=== PATIENT | female | born 1985 | race Caucasian/White ===

== ENCOUNTER 2018-09-11 07:55 | Inpatient (IN) | payer MEDICAID ==
[2018-09-11] MEDS ORDERED: Ondansetron 4 MG/2 ML SDV IV PRN (09:23)
[2018-09-11] MEDS ORDERED: Misoprostol 400 MCG (4 X 100 MCG TAB) RECTAL PRN (09:23)
[2018-09-11] MEDS ORDERED: Methylergonovine 0.2 MG/1 ML Amp IM PRN (09:23)
[2018-09-11] MEDS ORDERED: Sodium Chloride 0.9% 10 ML Syringe FLUSH PRN (09:23)
[2018-09-11] MEDS ORDERED: Acetaminophen 325 MG Tab PO PRN (09:23)
[2018-09-11] MEDS ORDERED: Lactated Ringers 500 ML IV ONE (09:23)
[2018-09-11] MEDS ORDERED: Lidocaine 1% 30 ML SDV INJECT PRN (09:23)
[2018-09-11] MEDS ORDERED: Carboprost Tromethamine 250 MCG/1 ML Amp IM PRN (09:23)
[2018-09-11] MEDS ORDERED: Tranexamic Acid 1,000 MG in Sodium Chloride 0.9% 100 ML IV PRN (09:23)
[2018-09-11] MEDS: Oxytocin/Normal Saline 30 UNIT/500 ML BAG IV SCH (11:25)
[2018-09-11] MEDS: Lactated Ringers 1,000 ML IV SCH ×2 (11:25→20:53)
--- NOTE | 2018-09-11 14:16 | HP ---
HISTORY OF PRESENT ILLNESS: The patient is a 32-year-old, G6, para 3-0-2-3, currently at 40 weeks and 1 day gestation based on LMP. The patient is presenting from [place] with prolonged rupture of membranes. Yesterday, she had spontaneous rupture of membranes at 4:45 a.m. She was planning a home , so top lift cutter, Adriana, was present. There was no progression with labor at 24 hours post rupture. She was having contractions 2 to 3 minutes apart and then they stopped. She went to [facility] and wanted a female physician, none were available there, so she presented to [place]. She was 2 cm and she has not changed. She has had some more leakage of clear watery fluid, but not a lot. She denies any headaches, visual changes, or vaginal bleeding. movement has remained excellent. She has no questions or concerns at this time, she just wants to have this baby as natural as possible. The patient has been seeing Adriana, her top lift cutter, for her care. No labs have been done, just CBC and urine labs. The patient does not recall any abnormalities with these. She has not had an ultrasound for this . HISTORY: 1. Delivered on 08/21/2012, 41 weeks' gestation, male infant, spontaneous, uncomplicated vaginal home , named Tata, weight 8 pounds 12 ounces. 2. Delivered on 11/02/2014, 39 weeks and 6 days' gestation, male , spontaneous, uncomplicated vaginal home , named Peg, weighed 9 pounds 5 ounces. 3. Delivered a stillborn fetus at 6 months of gestation on 11/17/2015. No autopsy was performed. Unknown as to why the baby was stillborn. 4. Miscarriage at 12 weeks. 5. Delivered on 01/15/2017, baby girl at 39 weeks and 4 days, spontaneous, uncomplicated vaginal home weighed 8 pounds 12 ounces, and her name is Latonya. LABORATORY DATA: GBS unknown; no testing for gestational DM. She was seen in clinic in [facility] in 2012 for her first labs at that time showed blood type A+ and she was rubella immune. PAST MEDICAL HISTORY: Chickenpox as a child, otherwise nothing else. PAST SURGICAL HISTORY: None. FAMILY HISTORY: The patient's dad has high blood pressure and has had skin cancer. The patient's mom is healthy. She has 3 brothers who are healthy. Maternal and paternal grandfather had heart attacks, from heart attacks. Maternal mother had lung cancer. Paternal grandmother is healthy and alive. She has a cousin with Down Syndrome. Nephew with biliary atresia. Second cousin with cleft lip. SOCIAL HISTORY: The patient lives with her and 3 kids in [place]. They travel in an for [employer] work with their 3 kids. When they are back in [place], they live at her , Daniel, mother's house. She has an apartment on her property. The 3 kids are home schooled. They travel for [employer]. [place] is [place]. No pets and no smoking. MEDICATIONS: vitamin, which she recently stopped taking. No other medications. ALLERGIES: Sulfa. REVIEW OF SYSTEMS: As listed under the HPI, otherwise unremarkable. No shortness of breath, chest pain, headaches, blurry vision, fever, chills, diarrhea, constipation, dysuria, or other reported problems. Did endorse nausea and vomiting throughout the , has not had any vomiting in the past few days. PHYSICAL EXAMINATION: Vital signs: Temp 98.3, pulse rate 80, blood pressure 133/76, respiratory rate 16. General: The patient is alert, cooperative. HEENT: Grossly normal. Neck: Supple with no adenopathy. Heart: Regular rate and rhythm without murmur. Lungs: Clear to auscultation bilaterally. Abdomen: Gravid. heart tones tracing in the 130s. Accelerations noted. [place] showing a couple of contractions over a 10-minute. Pelvic: Cervical exam per Dr. Coreas is 2 cm dilated. Cervix is posterior. Extremities: No edema, erythema, or tenderness noted. Neurologic: Appropriate. ASSESSMENT: 1. 6, para 3-0-2-3. 2. Prolonged prelabor rupture of membranes. 3. 40 and 1/7 weeks' gestation based on LMP. 4. care through top lift cutter. 5. Group B Streptococcus status unknown. 6. History of stillborn x1. 7. History of miscarriage x1. 8. Blood type A-positive, rubella immune (results are from 2012). 9. Family history of defects. PLAN: Started Pitocin at 11:30 a.m. and will run at 6 mU for 6 hours, for cervical ripening then increase as needed. Planning on a natural delivery. Planning on no medications for pain management. Anticipating vaginal delivery. We will monitor and make changes to the plans when necessary. This patient was seen by Dr. Michelle Coreas and myself. Assessment and plan are under advisement of Dr. Michelle Coreas. Francis Wilson, -III Patients seen and examined. Agree with note as scribed on my behalf by Justin Wilson, MS 3. -[facility] 09/11/18 1005. MODL /[id number] MTDD
[2018-09-11] MEDS ORDERED: Penicillin G Potassium 5 MILLUNITS in Sodium Chloride 0.9% 100 ML IV STA (19:32)
[2018-09-11] MEDS ORDERED: Penicillin G Potassium 5,000,000 Unit Vial ONE (19:35)
[2018-09-11] MEDS ORDERED: Penicillin G Potassium 5 MILLUNITS in Sodium Chloride 0.9% 100 ML IV ONE (19:45)
[2018-09-11] MEDS ORDERED: Penicillin G Potassium 3 MILLUNITS in Sodium Chloride 0.9% 100 ML IV SCH (19:45)
[2018-09-11] MEDS: Calcium Carbonate 500 MG Tab.Chew PO PRN (20:02)
[2018-09-12] MEDS: Oxytocin/Normal Saline 30 UNIT/500 ML BAG IV SCH (00:02)
[2018-09-12] MEDS: Penicillin G Potassium 3 MILLUNITS in Sodium Chloride 0.9% 100 ML IV SCH ×5 (03:39→11:54)
[2018-09-12] MEDS: Lactated Ringers 1,000 ML IV SCH (06:05)
[2018-09-12] MEDS: Calcium Carbonate 500 MG Tab.Chew PO PRN (07:59)
--- NOTE | 2018-09-12 10:45 | PN ---
DATE: 09/12/2018 SUBJECTIVE: Dannielle is a 32-year-old, G6, para 3-1-1-3, currently at 40 weeks and 2 days' gestation based on her last menstrual period. Currently, her membranes have been ruptured for 51 hours. 6 mU of Pitocin were run for 6 hours yesterday. Dose was increased after by 2 mU every 2 hours until 20 mU was reached. At that time, the patient was checked and found to be making slow progress being dilated to a 3 from a 2 on arrival. Pitocin was stopped for 30 minutes and restarted at 10 mU going up 2 mU every 30 minutes. At 4:15 this morning, she was dilated to a 4, 75% effaced, cervix more mid- position and -1 station. The Pitocin was also stopped at this time so the patient could take a bath for 30 min, restarted at 10 mU again. Her temperature went from 98.3 on arrival to 99.4 at around 7:30 p.m. last night, so penicillin was started at 3 mU IV every 4 hours. The patient says her contractions are coming here and there and rates them at about a 4/10 on a scale for strength. Pain at about a 3/10. She is feeling movement. She is able to ambulate and urinate. Tolerating diet. She still has some clear leakage once in a while, sometimes with a little bit of blood. Last night, she had a headache and received some Tylenol, it went away really quickly, and she has not had any headaches since. No change in vision. She has had some heartburn and has gotten Tums. OBJECTIVE: Vital Signs: Temp 99.9, pulse 101, blood pressure 114/71, and respiratory rate 18. heart tracings are in the 140s with moderate variability, no decelerations, some accelerations. General: Alert, cooperative, in no acute distress. HEENT: Grossly normal. Pulmonary: Lungs are clear to auscultation bilaterally, no increased work of breathing. Cardiovascular: Heart is regular rate and rhythm. No murmurs noted. Abdomen: Gravid, nontender. Extremities: No edema in the ankles bilaterally. No calf tenderness on palpation. Neurologic: No focal neurologic deficits. LABORATORY DATA: Recent lab results from 09/11/2018 at noon: White blood cells 9, hemoglobin 13.1, red blood cells 4.88, hematocrit 39.4, and platelet count 159. ASSESSMENT: 1. 6, para 3-1-1-3. All vaginal deliveries. 2. Prolonged prelabor rupture of membranes. 3. A 40 and 2/7 weeks' gestation based on last menstrual period. 4. care through access services assistant. 5. Group B streptococcus status unknown. 6. History of stillborn x1. 7. History of miscarriage x1. 8. Blood type A positive, rubella immune (results are from 2012). 9. Family history of defects. PLAN: Continue Pitocin as long as the patient and are continuing to tolerate labor. Continue penicillin. Planning on a natural delivery. Planning on no medications for pain management. Anticipating vaginal delivery. We will monitor and make changes to the plan when necessary. The patient was seen by Dr. Coreas and myself. Assessment and plan are under advisement of Dr. Michelle Coreas. Francis Wilson MS-III Patient seen and examined. Agree with note as scribed on my behalf by Francis Wilson, MS3. -[facility] 09/12/182028. MOD /[id number] MTDSukhjinder
[2018-09-12] MEDS ORDERED: Ibuprofen 800 MG Tab PO PRN (14:13)
[2018-09-12] MEDS ORDERED: Benzocaine/Menthol 20%-0.5% Spray 56 GM Canister TOP PRN (14:14)
--- NOTE | 2018-09-13 14:08 | DEL ---
DATE: 09/12/2018 PREOPERATIVE DIAGNOSES: 1. 6, para 3-1-1-3. 2. Prolonged prelabor rupture of membranes. 3. 40 and 1/7 weeks' gestation based on last menstrual period. 4. care through vacuum filter operator. 5. Group B streptococcus status unknown. 6. History of stillborn x1. 7. History of miscarriage x1. 8. Blood type A positive, rubella immune (results are from 2012). 9. Family history of defects. 10.First trimester bleeding. POSTOPERATIVE DIAGNOSES: 1. 6, para 4-1-1-4. 2. Prolonged prelabor rupture of membranes. 3. 40 and 2/7 weeks' gestation based on last menstrual period. 4. care through vacuum filter operator. 5. Group B streptococcus status unknown. 6. History of stillborn x1. 7. History of miscarriage x1. 8. Blood type A positive, rubella immune. 9. Family history of defects. 10.First trimester bleeding. 11.Status post spontaneous vaginal delivery with small perineal grade 1 tear, no repair needed. 12.Delivery of viable female . 13. Delivered intact, small placenta with peripheral calcifications, thin umbilical cord with hussein door insertion. BRIEF HISTORY: Dannielle is a 32-year-old admitted to the hospital with the above listed diagnoses with prolonged prelabor rupture of membranes. The patient presented at 40 weeks and 1-day gestation based on her last menstrual period with prolonged prelabor rupture of membranes for about 31 hours on arrival. Pitocin was started at 6 milliunits and ran for 6 hours. Dose was increased after that by 2 milliunits every 2 hours until 20 milliunits was reached. At that time, she was checked and found to be making slow progress, being dilated to a 3 from a 2. Pitocin was stopped 2 times overnight for 30 minutes and restarted. At 4:15 a.m. on 09/12/2018, she was dilated to a 4, 75% effaced. Cervix had moved more mid position, and station was -1. Starting around 11:00 a.m., the patient was dilated to 6 cm and was having more painful regular contractions. She progressed to 9 cm by noon. The patient pushed through a couple of contractions, and baby was delivered at 12:19 pm. Her temperature went from 98.3 on arrival to 99.4 at around 7:30 p.m. on 09/11/2018. Penicillin was started at 3 milliunits IV every 4 hours. The patient received 4 doses of penicillin before delivery. PROCEDURE IN DETAIL: The patient in dorsal lithotomy position, delivered a viable female infant in the HOLLY position with a loose nuchal cord. Baby was delivered at 12:19 p.m. A small skin tear, grade 1, at the perineum was hemostatic. No repair needed. Baby girl was placed directly skin to skin. Three-vessel umbilical cord clamping was delayed by about 10 minutes. Baby was stimulated and suctioned on mom's chest. scores were 7 and 9 for color and respirations. Placenta was delivered at 12:41 with fundal massage and gentle cord traction. Placenta was intact. Upon further inspection, placenta was small with 20 cm diameter with thin umbilical cord, hussein luigi insertion. There was large calcium deposits on the periphery of the placenta, likely from first trimester bleeding. Estimated blood loss was 200 mL. The patient tolerated the procedure well and did not have any form of medical pain management. COMPLICATIONS: Prolonged prelabor rupture of membranes. ESTIMATED BLOOD LOSS: 200 mL. FINDINGS: 1. Viable female infant. 2. scores of 7 and 9. 3. Small placenta with thin umbilical cord and hussein luigi insertion. Large calcium deposits at the periphery of the placenta. 4. Baby weighed 6 pounds 12.8 ounces (3085 g). DISPOSITION: Mother and baby to stay in the room to initiate bonding and . The patient was seen by myself and Dr. Michelle Coreas. Delivery note is under supervision of Dr. Michelle Coreas. Francis Wilson MS-III Patient seen and procedure performed under my direct supervision. Agree with note as scribed on my behalf by Francis Wilson MS3. -[facility] 09/16/18 1225. [facility] /[id number] MTDSukhjinder
--- NOTE | 2018-09-14 03:20 | DISCH ---
ADMITTING DIAGNOSES: 1. 6, para 3-1-1-3. 2. Prolonged prelabor rupture of membranes. 3. 40 and 1/7 weeks gestation based on last menstrual period. 4. care through entertainment & media correspondent. 5. Group B strep status unknown. 6. History of stillborn x1. 7. History of miscarriage x1. 8. Blood type A positive, rubella immune (results from 2012). 9. Family history of defects. DISCHARGE DIAGNOSES: 1. 6, para 4-1-1-4. All vaginal deliveries. 2. Prolonged prelabor rupture of membranes. 3. A 40 and 2/7 weeks gestation based on last menstrual period. 4. care through entertainment & media correspondent. 5. Group B strep status unknown. 6. History of stillborn x1. 7. History of miscarriage x1. 8. Blood type A positive, rubella immune (results from 2012). 9. Family history of defects. 10.Viable female . 11.Small placenta with calcifications on the periphery and a thin umbilical cord with battledore insertion. 12. First trimester bleeding not previously reported. BRIEF HISTORY: The patient is a 32-year-old with the above listed diagnoses, who presented from [place] with prolonged prelabor rupture of membranes. Yesterday, the day before admission, she had spontaneous rupture of membranes at 4:45 a.m. She was planning a home , so entertainment & media correspondent, Adriana, was present. There was no progression with labor at 24 hours post rupture. She was having contractions 2 to 3 minutes apart and they stopped. She went to [facility] and wanted a female physician, none were available there, so she presented to [facility], at around 31 hours ruptured. She was 2 cm and she progressed slowly. Six milliunits of Pitocin were run for 6 hours on day of admission. Dose was increased after by 2 milliunits every 2 hours until 20 milliunits was reached. Pitocin was stopped twice that evening, but continued after. On the morning of 09/12/2018, she had progressed to 4 cm, 75% effaced, and the cervix was midposition and -1 station. Her temperature went from 98.3 on arrival to 99.4, so penicillin was started at 3 milliunits IV every 4 hours. Four doses were administered at before baby was delivered. Once active stage of labor ensued, delivery of baby progressed quickly and a viable female was born. She had a small tear in her perineal skin, unrepaired, hemostatic. The placenta was small at 20 cm with a thin umbilical cord, large calcium deposits on the periphery, possibly from first trimester bleeding. Umbilical cord had a battledore insertion. HOSPITAL COURSE: Good. Baby weighed 3085 g. Apgars were 7 and 9. After delivery, the patient did well. She was ambulating, tolerating regular diet, and urinating. The patient was not sure if she passed any gas. Has had no bowel movements. The night of 09/12/2018, her tailbone was sore. She had Motrin and that made it go away and she has not had pain there since, only leaking fluid when she uses the bathroom. DISCHARGE CONDITION: Good. DISCHARGE PHYSICAL EXAMINATION: Vital Signs: Temperature 98.6 degrees Fahrenheit, pulse 94, blood pressure 114/76, respiratory rate 16. Heart: Regular rate and rhythm without murmur. Lungs: Clear bilaterally. Abdomen: Soft, nontender. Fundus firm and below the umbilicus. Extremities: No edema, erythema, or tenderness noted. LABORATORY DATA: On admission, hemoglobin was 13.1, hematocrit 39.4, white blood cells 9. Blood loss at delivery was 200 mL. Therefore, repeat CBC was not performed. DISCHARGE MEDICATIONS: None prescribed. DISPOSITION: Home with family. FOLLOWUP: The patient advised to have 6-week followup. She will be seeing Adriana, the entertainment & media correspondent next week. She is planning on establishing care in [place] with Dr. Kaylin Urbina. The patient was seen by myself and Dr. Michelle Levy. Assessment and plan are under advisement of Dr. Michelle Levy. Francis Wilson MS-III Patient seen and examined. Agree with note as scribed on my behalf by Francis Wilson MS3. -[facility] 09/16/18 1229. MOD /[id number] MTDSukhjinder
== END 2018-09-13 13:15 | disposition home or self-care (01) | DRG 807 ==
LOC: UNDOADMOB 09:23 → DL.OB 09:23 → OBSVTOIN 12:19 → INTOOBSV 12:19 → DL.OB 09-12 12:19 → OBSVTOIN 09-12 12:19
PROVIDERS: ADMIT Family Medicine; ATTEND Family Medicine
PROC: 10E0XZZ Delivery of Products of Conception, External Approach (ICD-10-PCS; principal; 2018-09-12)
PROC: 3E033VJ Introduction of Other Hormone into Peripheral Vein, Percutaneous Approach (ICD-10-PCS; 2018-09-12)
DX: O48.0 Post-term pregnancy (principal); Z37.0 Single live birth; O42.12 Full-term premature rupture of membranes, onset of labor more than 24 hours following rupture; O70.0 First degree perineal laceration during delivery; Z3A.40 40 weeks gestation of pregnancy; Z88.2 Allergy status to sulfonamides
CPT/HCPCS: 36415; 59409; 85027; A9270-GY; J2540; J2590; J7050; J7120